=== PATIENT | female | born 1955 | race Hispanic/Latino ===

== ENCOUNTER 2017-09-14 13:48 | Outpatient (CLI) | payer BC | END 2017-09-14 13:49 | disposition home or self-care (01) | LOC: BICRAD 13:48 | PROVIDERS: ATTEND Family Medicine | DX: J18.9 Pneumonia, unspecified organism (principal) | CPT/HCPCS: 71046 ==

== ENCOUNTER 2018-02-18 09:07 | Outpatient (CLI) | payer BC ==
--- NOTE | 2018-02-18 13:03 | MRI ---
MRI LUMBAR SPINE WITHOUT CONTRAST: INDICATIONS: Chronic low back pain for years with right hip and right thigh pain. TECHNIQUE: Multiplanar, multisequence MR images were obtained of the lumbar spine without IV contrast. FINDINGS: No acute fracture is demonstrated. The conus is seen to terminate at approximately L1. Bone marrow signal intensity appears within normal limits. At L5-S1, there is moderate right and mild left facet joint degenerative change with a broad-based bu lge. The broad-based bulge and facet hypertrophy encroach upon the neural foramina without definite nerve root impingement. At L4-L5, there is moderate facet joint degenerative change with a broad-based disk bulge with neural foraminal encroachment without definite nerve root impingement. There is mild central canal narrowi ng. At L3-L4, there is a broad-based bulge with facet hypertrophy and ligamentum flavum hypertrophy induc ing mild central canal narrowing with mild neural foraminal encroachment, left greater than right. At L2-L3, there is a broad-based bulge with mild facet joint degenerative change, without appreciable central canal or neural foraminal narrowing. At L1-L2, there is no appreciable central canal or neural foraminal narrowing. At T12-L1, there is no appreciable central canal or neural foraminal narrowing. IMPRESSION: Multilevel spondylosis of the lumbar spine with central canal and neural foraminal narrowing, as justicev e. POS: [facility]
== END 2018-02-18 09:08 | disposition home or self-care (01) ==
LOC: MRI 09:07 → BICMRI 09:08
PROVIDERS: ATTEND Family Medicine
DX: M54.5 Low back pain (principal); M47.816 Spondylosis without myelopathy or radiculopathy, lumbar region; M48.061 Spinal stenosis, lumbar region without neurogenic claudication; M99.83 Other biomechanical lesions of lumbar region
CPT/HCPCS: 72148

== ENCOUNTER 2018-06-22 14:56 | Outpatient (CLI) | payer BC ==
[~2018-06-22 14:56] MED LIST: Gadobenate Dimeglumine 529 MG/1 ML (20ML VIAL) ONE
--- NOTE | 2018-06-22 17:30 | MRI ---
MRI BRAIN WITH AND WITHOUT IV CONTRAST: 06/22/2018 HISTORY: Headache post fall. Patient with history of concussion one year ago. Has now started having headach es for the last 3 to 4 months, which are getting worse. COMPARISON: None available. FINDINGS: There are scattered punctate areas of increased FLAIR and T2 weighted signal intensity within the per iventricular and subcortical white matter, as well as in the anand bilaterally, likely reflective of c hronic small vessel ischemic change. There is no evidence of an acute infarction. No abnormal areas of enhancement are seen after the administration of intravenous contrast. There is a small, dilated perivascular space in the right lentiform nucleus. The septum pellucidum and third ventricle are in the midline. The ventricular system is normal in si ze, shape, and position. Appropriate flow voids are demonstrated at the base of the brain. The distal left vertebral artery i s dominant. Minimal mucosal thickening is seen in a few right ethmoid air cells. The orbits and remainder of the skull base have a normal MRI appearance. IMPRESSION: No acute intracranial abnormalities demonstrated. POS: [facility]
== END 2018-06-22 14:57 | disposition home or self-care (01) ==
LOC: BICMRI 14:56
PROVIDERS: ATTEND Family Medicine
DX: R51 Headache (principal); W19.XXXA Unspecified fall, initial encounter
CPT/HCPCS: 70553; A9577

== ENCOUNTER 2018-11-01 12:40 | Outpatient (CLI) | payer BC ==
[2018-11-01 13:01] LABS: Estimated GFR-MDRD - POC Greater than 90
--- NOTE | 2018-11-01 13:55 | CT ---
ABDOMEN AND PELVIC CT SCAN WITH IV CONTRAST: HISTORY: Diarrhea and lower abdominal pain for 1 month. FINDINGS: The lung bases are clear of acute process. Liver, gallbladder, pancreas, spleen, and adrenal glands are unremarkable. Small nonobstructing left renal calculus. No evidence for acute obstruction. Normal-appearing appendix. There is abnormal colonic wall thickening involving most of the transvers e colon and the entire left colon with some pericolonic fat stranding concerning for nonspecific coli tis. There is trace free fluid in the pelvis. No evidence of bowel obstruction. IMPRESSION: Evidence for nonspecific colitis involving the transverse colon as well as the entire left colon. Tr aurelio free fluid in the pelvis. Tiny nonobstructing left renal calculus. Normal-appearing appendix. POS: [facility]
[2018-11-01] MEDS ORDERED: ISOVUE-370 76%-LOCM 1 ML ONE (13:56)
== END 2018-11-01 12:41 | disposition home or self-care (01) ==
LOC: BICCT 12:40
PROVIDERS: ATTEND Physician Assistant Medical
DX: R10.30 Lower abdominal pain, unspecified (principal); R19.7 Diarrhea, unspecified; N20.0 Calculus of kidney; K52.9 Noninfective gastroenteritis and colitis, unspecified
CPT/HCPCS: 74177; 82565; Q9966

== ENCOUNTER 2019-01-06 08:39 | Inpatient (IN) | payer BC ==
[2019-01-06] MEDS ORDERED: diphenhydrAMINE 50 MG/ML VIAL ONE (09:12)
[2019-01-06] MEDS ORDERED: Metoclopramide HCl 10 MG/2 ML VIAL ONE (09:12)
[2019-01-06 09:19] LABS: #Basophils 0.1 thou/uL (0.0-0.2); #Eosinphils 0.1 thou/uL (0.0-0.7); #Lymphocytes 5.2 thou/uL (1.20-3.40); #Monocytes 0.9 thou/uL (0.11-0.59); #Neutrophils 7.2 thou/uL (1.40-6.50); %Basophils 0.9 % (0.0-1.0); %Eosinophils 0.9 % (0.0-10.0); %Lymphocytes 38.3 % (21.0-51.0); %Monocytes 6.4 % (0.0-10.0); %Neutrophils 53.5 % (42.0-75.0); Hemoglobin 14.5 g/dL (12.0-16.0); Mean Corpuscular HGB CONC 33.8 g/dL (32.0-36.0); Mean Corpuscular Volume 88.8 fL (78.0-98.0); Mean Platelet Volume 8.3 fL (7.4-10.4); Platelet Count 327 thou/uL (130-400); RBC Distribution Width 13.2 % (11.5-14.5); Red Blood Cell (RBC) Count 4.83 mill/uL (4.20-5.40); White Blood Cell (WBC) Count 13.5 thou/uL (4.8-10.8)
--- NOTE | 2019-01-06 09:38 | CT ---
CT BRAIN WITHOUT CONTRAST: Date: 01/06/19 INDICATION: History of intermittent headache. COMPARISON: Prior MRI of the brain with and without contrast dated 06/22/18. FINDINGS: There is stable mild chronic small vessel white matter ischemic change. Remote lacunar infarct involv ing the right globus pallidus is stable appearing. Intracranial vascular calcifications are present. No acute infarct, hemorrhage, or hydrocephalus is present. Skull is intact. Mastoid air cells and par anasal sinuses are clear. IMPRESSION: 1. No definite acute intracranial abnormality. 2. Chronic ischemic change as above. POS: [facility]
[2019-01-06 09:42] LABS: ALT (SGPT) 13 U/L (8-55); AST (SGOT) 15 U/L (5-34); Albumin 4.5 g/dL (3.4-4.8); Alkaline Phosphatase 81 U/L (40-150); Anion Gap 15 mmol/L (10-20); BUN (Urea Nitrogen) 12 mg/dL (9.8-20.1); Bilirubin, Total 0.7 mg/dL (0.2-1.2); Calc. Creatinine Clearance 0 mL/min (70-130); Calcium 9.8 mg/dL (7.8-10.44); Carbon Dioxide 24 mmol/L (23-31); Chloride 99 mmol/L (98-107); Estimated GFR-MDRD 82; Globulin 3.7 g/dL (2.4-3.5); Glucose 86 mg/dL (80-115); Potassium 3.6 mmol/L (3.5-5.1); Protein, Total 8.2 g/dL (6.0-8.3); Sodium 134 mmol/L (136-145)
[2019-01-06] MEDS ORDERED: Aspirin 325 MG TAB ONE (11:00)
[2019-01-06] MEDS ORDERED: Acetaminophen 500 MG TAB ONE (11:12)
[2019-01-06] MEDS ORDERED: ISOVUE-370 76%-LOCM 1 ML ONE (12:02)
[2019-01-06] MEDS ORDERED: Gadobenate Dimeglumine 529 MG/1 ML (20ML VIAL) ONE (12:06)
[2019-01-06 13:55] VITALS: BMI 25.7
[2019-01-06] MEDS ORDERED: Ondansetron ODT 4 MG TAB PO PRN (15:22)
--- NOTE | 2019-01-06 15:48 | PDOC.FPRHP ---
- History of Present Illness Chief Complaint: GARDUNO, Elevated BP History of Present Illness: Pt is a 63 yo F with history of HTN, HLD, Seasonal allergies, and Depression who presents with Headache and elevated blood pressure. The patient states that her headache began last Wednesday. The headache is occipital and radiates to the left side of her head it is intermittent and worse in the mornings. She has been dealing with it by taking ASA, but she thought it might be sinus related, so she decided to go see Dr. Woody this morning. At her office visit, they checked her blood pressure and determined it was too high, so they told her to come to the ED. She endorses headache, chest pain, shortness of breath, abdominal pain, and blurry vision. She has not had any syncope, but she says she has felt like she was going to pass out at times, so she had to go lay down for the feeling to resolve. ED Course: In the ED, she had a CT Head, which showed: stable mild chronic small vessel white matter ischemic change. Remote lacunar infarct involving the right globus pallidus is stable appearing. Intracranial vascular calcifications, but no acute infarct, hemorrhage, or hydrocephalus is present. She was given ASA, Benadryl, Metoclopramide, 1L of NS and Tylenol in the ED. - Allergies/Adverse Reactions Allergies Allergy/AdvReac Type Severity Reaction Status Date / Time No Known Allergies Allergy Unverified 01/06/19 15:02 - Home Medications Medication Instructions Recorded Confirmed Type Aspirin 81 mg PO DAILY 01/06/19 01/06/19 History Atenolol [Tenormin] 1 tab PO DAILY 01/06/19 01/06/19 History Atorvastatin Calcium 1 tab PO HS 01/06/19 01/06/19 History Cetirizine HCl [Zyrtec] 10 mg PO DAILY 01/06/19 01/06/19 History Citalopram [CeleXA] 20 mg PO DAILY 01/06/19 01/06/19 History Lisinopril 40 mg PO DAILY 01/06/19 01/06/19 History Zolpidem Tartrate 1 tab PO HS 01/06/19 01/06/19 History - History PMHx: HTN, HLD, Seasonal allergies, and Depression PSHx: Tubal ligation, Hysterectomy, Cervical disc fusion FHx: Mom- from bone marrow cancer, Dad- Stroke Social: She smokes 1/2 PPD for 30 years. She drinks a 6-pack of beer/week. No recreational drugs. - Review of Systems General: denies: fever/chills, fatigue Eyes: reports: vision changes ENT: denies: nasal congestion, rhinorrhea Respiratory: reports: shortness of breath Cardiovascular: reports: chest pain. denies: edema Gastrointestinal: reports: nausea, abdominal pain. denies: vomiting, diarrhea Genitourinary: denies: dysuria Skin: denies: rashes Musculoskeletal: denies: pain, stiffness Neurological: reports: weakness. denies: numbness Psychological: reports: depression - Vital signs BP: 232/120 HR: 85 RR: 18 Tmax: 98.9 Pox: 98% on RA Wt: 66.22 kg - Physical Exam Constitutional: NAD, awake, alert and oriented, well developed HEENT: normocephalic and atraumatic, PERRLA, EOMI, no scleral icterus, normal nasal mucosa, MMM, oropharynx clear Neck: supple, FROM, trachea midline Chest: no-tender to palpation Heart: RRR, normal S1/S2, no murmurs/rubs/gallops Lungs: CTAB Abdomen: soft, non-tender, bowel sounds present Musculoskeletal: normal structure, normal tone, ROM grossly normal Neurological: no focal deficit, CN II-XII intact, normal sensation Skin: no rash/lesions Heme/Lymphatic: no unusual bruising or bleeding Psychiatric: normal mood and affect FMR H&P: Results - Labs Result Diagrams: 01/06/19 08:56 01/06/19 08:56 Lab results: WBC 13.5 thou/uL (4.8-10.8) H 01/06/19 08:56 Hgb 14.5 g/dL (12.0-16.0) 01/06/19 08:56 Hct 42.9 % (36.0-47.0) 01/06/19 08:56 MCV 88.8 fL (78.0-98.0) 01/06/19 08:56 Plt Count 327 thou/uL (130-400) 01/06/19 08:56 Neutrophils % 53.5 % (42.0-75.0) 01/06/19 08:56 Sodium 134 mmol/L (136-145) L 01/06/19 08:56 Potassium 3.6 mmol/L (3.5-5.1) 01/06/19 08:56 Chloride 99 mmol/L (98-107) 01/06/19 08:56 Carbon Dioxide 24 mmol/L (23-31) 01/06/19 08:56 BUN 12 mg/dL (9.8-20.1) 01/06/19 08:56 Creatinine 0.72 mg/dL (0.6-1.1) 01/06/19 08:56 Glucose 86 mg/dL (80-115) 01/06/19 08:56 Calcium 9.8 mg/dL (7.8-10.44) 01/06/19 08:56 Total Bilirubin 0.7 mg/dL (0.2-1.2) 01/06/19 08:56 AST 15 U/L (5-34) 01/06/19 08:56 ALT 13 U/L (8-55) 01/06/19 08:56 Alkaline Phosphatase 81 U/L (40-150) 01/06/19 08:56 Serum Total Protein 8.2 g/dL (6.0-8.3) 01/06/19 08:56 Albumin 4.5 g/dL (3.4-4.8) 01/06/19 08:56 - EKG Interpretation EKG: Sinus rhythm with ST depression in inferior leads. FMR H&P: A/P - Problem List (1) Headache Current Visit: Yes Status: Chronic Code(s): R51 - HEADACHE Qualifiers: Headache type: paroxysmal hemicrania Headache chronicity pattern: episodic headache Intractability: not intractable Qualified Code(s): G44.039 - Episodic paroxysmal hemicrania, not intractable (2) Hypertensive urgency Current Visit: Yes Status: Acute Code(s): I16.0 - HYPERTENSIVE URGENCY (3) Chest pain Current Visit: Yes Status: Acute Code(s): R07.9 - CHEST PAIN, UNSPECIFIED Qualifiers: Chest pain type: other chest pain Qualified Code(s): R07.89 - Other chest pain; R07.8 - Other chest pain (4) HLD (hyperlipidemia) Current Visit: Yes Status: Chronic Code(s): E78.5 - HYPERLIPIDEMIA, UNSPECIFIED Qualifiers: Hyperlipidemia type: unspecified Qualified Code(s): E78.5 - Hyperlipidemia , unspecified (5) HTN (hypertension) Current Visit: Yes Status: Chronic Code(s): I10 - ESSENTIAL (PRIMARY) HYPERTENSION Qualifiers: Hypertension type: unspecified Qualified Code(s): I10 - Essential (primary ) hypertension (6) Seasonal allergies Current Visit: Yes Status: Chronic Code(s): J30.2 - OTHER SEASONAL ALLERGIC RHINITIS (7) Depression Current Visit: Yes Status: Chronic Code(s): F32.9 - MAJOR DEPRESSIVE DISORDER, SINGLE EPISODE, UNSPECIFIED Qualifiers: Depression Type: unspecified Qualified Code(s): F32.9 - Major depressive disorder, single episode, unspecified (8) Tobacco abuse Current Visit: Yes Status: Chronic Code(s): Z72.0 - TOBACCO USE - Plan Pt is a 63 yo F with history of HTN, HLD, seasonal allergies, and depression who presents for headache and chest pain. 1. Headache Occipital GARDUNO that radiates to the left side * CT: shows NAF with chronic ischemic changes of the lacunar R globus pallidus * Neuro Exam negative for focal deficits * Allow for 24-48H permissive HTN * CTA Head & Neck * MRI Brain * Checking lipid panel, TSH, Mag, Phos * Restarting home statin and Aspirin 2. HTN Urgency BP: 232/120 at highest * Q4H Vitals * Will slowly reduce bp to prevent ischemia of organs * Restarted home Atenolol and MINA 3. Chest Pain Telemetry: Sinus Rhythm with ST depression in inferior leads * Ordered EKG * Will trend troponins * Q4H Vital Signs * Will keep on Telemetry * Currently not experiencing any Chest pain 4. HLD * Continue home Atorvastatin dose 5. Seasonal Allergies * Continue home Zyrtec 6. Depression * Continue home Citalopram 7. Tobacco Abuse * Nicotine patch * Smoking Cessation Counseling Condition: Stable Diet: HHLSo DVT PPX: Lovenox GI PPX: Pepcid Lines: Peripheral Activity: Ambulate with Assist PCP: Bong Code Status: DNR-DNI Dispo: Obs, will control blood pressures and rule out any ACS or Stroke. LOS < 2 days. FMR H&P: Upper Level - Plan Date/Time: 01/06/19 1543 I, Cody Chamorro MD, have evaluated this patient and agree with findings/plan as outlined by underwriting intern resident. Pertinent changes/additions are listed here. Funmilayo Alves is a 63 year old with a PMH of HTN, HLD, Depression who presented to the ED with headache and elevated blood pressure. States headaches have been occurring off and on over the last week. Headache located on the posterior aspect of head and radiates to the left side. Worse in the mornings. Taking aspirin for headache. BP was checked by PCP, Bong, and it was significantly elevated so they instructed her to go to the ED. She endorses some chest pain, dyspnea, abdominal and blurry vision associated with her headaches. In the ED, CT brain was done showing stable mild chronic small vessel white matter ischemic change and remove lacunar infarct involving the right globus pallidus that is stable, intracranial vascular calcifications but no infarct or hemorrhage. She was given ASA, benadryl, reglan, tylenol and 1 L NS in the ED. We are admitting patient to stroke/obs. Checking MRI brain, CTA head and neck. Continue aspirin and statin. Will r/o CVA. Trending trops due to chest pain. Will get better control of hypertension after allowing permissive htn for 24 hours. Please see underwriting intern note above for full H&P, which I have reviewed and agree with.
[2019-01-06 16:01] LABS: Magnesium 1.7 mg/dL (1.6-2.6); Phosphorus 2.9 mg/dL (2.3-4.7)
[2019-01-06 16:08] LABS: Troponin I 0.013 ng/mL (< 0.028)
[2019-01-06] MEDS ORDERED: Atenolol 50 MG TAB PO SCH (16:15)
[2019-01-06] MEDS ORDERED: Lisinopril 20 MG TAB PO SCH (16:15)
[2019-01-06 16:26] LABS: Cardiac Risk 2.9 (Less than 4.5)
--- NOTE | 2019-01-06 16:44 | CT ---
CTA HEAD: 01/06/19 Axial tomograms obtained through the head following angio protocol with multiplanar reconstructions a nd 3D postprocessing. INDICATIONS: Headache. FINDINGS: The intracranial internal carotid arteries are patent and symmetric. Mild atherosclerotic change seen at the cavernous portions of both ICAs; however, no stenosis. Middle cerebral arteries are patent an d symmetric. Anterior cerebral arteries are patent and symmetric. Basilar artery is patent. Posterio r cerebrals are patent and symmetric. No aneurysm identified. IMPRESSION: Unremarkable CT angiogram of cerebral circulation. CTA NECK: Axial tomograms obtained with multiplanar reconstructions and 3D postprocessing. INDICATIONS: Headache. FINDINGS: Mild atherosclerotic change at the arch. No stenosis at the origin of the arch vessels. Both common carotid arteries are patent and symmetric with no stenosis or atherosclerotic change. There is atherosclerotic changes with calcified plaque in both bulbs and proximal ICAs. However, no e vidence of internal carotid artery stenosis identified by NASCET criteria. Vertebral arteries are patent and symmetric. Soft tissues show effacement of the vallecula in the hypopharynx on the left with effacement of the l eft piriform sinuses. Mild mucosal prominence at this location. Recommend direct evaluation of this site to rule out mucosal lesion. Otherwise no evidence of mass or adenopathy. IMPRESSION: 1. Atherosclerotic calcifications in both bulbs and proximal ICAs without evidence of significan t stenosis. 2. Mild mucosal prominence in the hypopharynx at the vallecula on the left and effacement of the left piriform sinus. Recommend direct evaluation of this region of the hypopharynx. POS: [facility]
--- NOTE | 2019-01-06 17:11 | MRI ---
MRI OF BRAIN WITH AND WITHOUT CONTRAST: 01/06/19 INDICATIONS: Headache. FINDINGS: Ventricles have normal size and position. Moderately severe chronic ischemic white matter changes are seen in both cerebral hemispheres. No evidence for restricted diffusion. There is no evidence of acute infarct, mass, or edema. Prominen t ischemic changes are seen in the brain stem on FLAIR sequence. When compared to the recent MRI of 06/22/18, the ischemic white matter changes have progressed since th at time with increasing signal now seen in the periventricular white matter. No abnormal enhancement. Intracranial internal carotid arteries and cerebral arteries exhibit expecte d flow voids. No other interval change noted. IMPRESSION: Moderate to severe chronic ischemic white matter changes are seen in both cerebral hemispheres. These changes have progressed when compared to July 05. There is no evidence of acute infarct or other si gnificant interval change noted. POS: [facility]
[2019-01-06] MEDS: Nicotine 21 MG PATCH TD SCH (17:48)
[2019-01-06 18:19] LABS: Troponin I Less than 0.010 ng/mL (< 0.028)
[2019-01-06] MEDS ORDERED: hydrALAZINE 20 MG/ML VIAL SLOW IVP SCH ×2 (19:48→21:15)
[2019-01-06] MEDS ORDERED: Chlorthalidone 25 MG TAB PO SCH (20:00)
[2019-01-06] MEDS: Zolpidem Tartrate 5 MG TAB PO SCH (20:08)
[2019-01-06] MEDS: Atorvastatin Calcium 40 MG TAB PO SCH (20:08)
[2019-01-06] MEDS: Famotidine 20 MG TAB PO SCH (20:08)
--- NOTE | 2019-01-06 20:38 | PDOC.EVN ---
Event Note - Event Note Event Note: Page from RN saying pt BP 231/113. - Ordered hydralazine 10 mg IV to be given now. - Went to evaluate pt. Pt had been just been given hydralazine upon evaluation and reports headache was improving. Ordered chlorthalidone 12.5 mg to be given now as well. Scheduled chlorthalidone 25 mg daily for the AM along w/ atenolol and lisinopril. On exam, pt euvolemic. Lungs clear. No lower extremity or sacral edema. Radial pulse 2+. Pt's daughter July present and inquired if renal U/S might be indicated. Informed her if BP did not improve after addition of 3rd BP med tomorrow, then this is definitely something to consider. Malissa Isbell MD PGY1
[2019-01-06] MEDS ORDERED: Atorvastatin Calcium 40 MG TAB PO SCH (21:00)
[2019-01-06 22:58] LABS: Troponin I 0.012 ng/mL (< 0.028)
[2019-01-06] MEDS: Acetaminophen 325 MG TAB PO PRN (23:47)
[2019-01-07] MEDS ORDERED: diphenhydrAMINE 50 MG/ML VIAL IVP SCH (00:15)
[2019-01-07] MEDS ORDERED: Metoclopramide HCl 10 MG/2 ML VIAL IVP SCH (00:30)
[2019-01-07] MEDS ORDERED: Lactated Ringer's 500 ML IV SCH ×2 (00:30→00:45)
[2019-01-07 05:09] LABS: #Basophils 0.1 thou/uL (0.0-0.2); #Eosinphils 0.2 thou/uL (0.0-0.7); #Lymphocytes 4.3 thou/uL (1.20-3.40); #Monocytes 0.9 thou/uL (0.11-0.59); #Neutrophils 7.1 thou/uL (1.40-6.50); %Basophils 0.5 % (0.0-1.0); %Eosinophils 1.5 % (0.0-10.0); %Lymphocytes 34.3 % (21.0-51.0); %Monocytes 6.9 % (0.0-10.0); %Neutrophils 56.9 % (42.0-75.0); Hemoglobin 13.6 g/dL (12.0-16.0); Mean Corpuscular HGB CONC 33.8 g/dL (32.0-36.0); Mean Corpuscular Hemoglobin 29.8 pg (27.0-31.0); Mean Corpuscular Volume 88.2 fL (78.0-98.0); Mean Platelet Volume 7.9 fL (7.4-10.4); Platelet Count 286 thou/uL (130-400); Red Blood Cell (RBC) Count 4.56 mill/uL (4.20-5.40); White Blood Cell (WBC) Count 12.4 thou/uL (4.8-10.8)
[2019-01-07] MEDS ORDERED: hydrALAZINE 20 MG/ML VIAL SLOW IVP SCH ×2 (05:15→14:15)
[2019-01-07 05:28] LABS: Anion Gap 12 mmol/L (10-20); BUN (Urea Nitrogen) 11 mg/dL (9.8-20.1); Calc. Creatinine Clearance 92 mL/min (70-130); Calcium 9.4 mg/dL (7.8-10.44); Carbon Dioxide 24 mmol/L (23-31); Chloride 98 mmol/L (98-107); Estimated GFR-MDRD Greater than 90; Glucose 105 mg/dL (80-115); Potassium 3.3 mmol/L (3.5-5.1); Sodium 131 mmol/L (136-145)
[2019-01-07] MEDS: Ondansetron PF 4 MG/2 ML Vial IVP PRN ×2 (06:16→12:33)
--- NOTE | 2019-01-07 06:32 | PDOC.FM ---
- Subjective Subjective: Continued headache this morning with nausea. Just received nausea medications and waiting for them to kick in. Difficulty sleeping overnight. - Objective Vital Signs & Weight: Vital Signs (12 hours) Temp Pulse Resp BP BP Pulse Ox 01/07/19 05:20 64 01/07/19 04:00 97.4 F L 64 15 191/94 H 97 01/07/19 00:00 98.3 F 74 H 147/78 H 14 L 01/06/19 21:46 66 231/118 H 01/06/19 20:07 66 231/118 H 01/06/19 20:00 98.3 F 68 15 231/113 H 97 Weight Weight 65.969 kg I&O: 01/05/19 01/06/19 01/07/19 06:59 06:59 06:59 Intake Total 1200 Balance 1200 Result Diagrams: 01/07/19 04:59 01/07/19 04:59 Phys Exam - Physical Examination Constitutional: NAD HEENT: PERRLA Neck: no JVD Respiratory: clear to auscultation bilateral Cardiovascular: RRR, no significant murmur Gastrointestinal: soft, non-tender Musculoskeletal: no edema, pulses present Neurological: non-focal, moves all 4 limbs Psychiatric: normal affect, A&O x 3 Dx/Plan (1) Chest pain Code(s): R07.9 - CHEST PAIN, UNSPECIFIED Status: Acute Qualifiers: Chest pain type: other chest pain Qualified Code(s): R07.89 - Other chest pain; R07.8 - Other chest pain (2) Hypertensive urgency Code(s): I16.0 - HYPERTENSIVE URGENCY Status: Acute (3) Depression Code(s): F32.9 - MAJOR DEPRESSIVE DISORDER, SINGLE EPISODE, UNSPECIFIED Status : Chronic Qualifiers: Depression Type: unspecified Qualified Code(s): F32.9 - Major depressive disorder, single episode, unspecified (4) HLD (hyperlipidemia) Code(s): E78.5 - HYPERLIPIDEMIA, UNSPECIFIED Status: Chronic Qualifiers: Hyperlipidemia type: unspecified Qualified Code(s): E78.5 - Hyperlipidemia , unspecified (5) Headache Code(s): R51 - HEADACHE Status: Chronic Qualifiers: Headache type: paroxysmal hemicrania Headache chronicity pattern: episodic headache Intractability: not intractable Qualified Code(s): G44.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 HTN Urgency BP: 232/120 at highest * Q4H Vitals * Will slowly reduce bp to prevent ischemia of organs * Restarted home Atenolol and MINA * increased atenolol to 100 and added chlorithalidone 25 * PRN Hydralazine 10mg needed x2 overnight * Will cont to monitor and titrate rx as needed for BP control * If recent change in rx does not improve BP will need to further assessment of secondary causes of acute BP elevation - consider renal US, metanephrines, earnest/aldost 2. Headache Occipital GARDUNO that radiates to the left side * CT: shows NAF with chronic ischemic changes of the lacunar R globus pallidus * Neuro Exam negative for focal deficits * CTA Head & Neck - mild atherosclerosis of bilateral bulbs w/o stenosis * MRI Brain - progression of mod-severe chronic ischemic white matter changes from 07/05, no acute infarct * Lipid panel, TSH, Mag, Phos w/o significant abnormalities * Restarting home statin and Aspirin 3. Chest Pain Telemetry: Sinus Rhythm with ST depression in inferior leads * Trop neg x3 * Q4H Vital Signs * Will keep on Telemetry * Currently not experiencing any Chest pain 4. HLD * Continue home Atorvastatin dose 5. Seasonal Allergies * Continue home Zyrtec 6. Depression * Continue home Citalopram 7. Tobacco Abuse * Nicotine patch * Smoking Cessation Counseling Condition: Stable Diet: HHLSo DVT PPX: Lovenox GI PPX: Pepcid Lines: Peripheral Activity: Ambulate with Assist PCP: Bong Code Status: DNR-DNI Dispo: Obs, will control blood pressures and rule out any ACS or Stroke. LOS < 2 days. Addendum - Attending - Attending Attestation Date/Time: 01/07/19 5410 I personally evaluated the patient and discussed the management with Dr. Anaya at [id number]. I agree with the History, Examination, Assessment and Plan documented above with any addition or exceptions noted below. Hypertensive emergency with headache- no sign of CVA on MRI, so will increase home medication dosages and continue prn. Goal to get bp <160/95 today. Per daughter her baseline is 145/80s. Headache- presumed secondary to htn- will follow headache protocol n/v- normal MRI yesterday so doubt increased intracranial pressure- diff is vomiting associated with migraine, gastroenterits. Zofran prn. Change to admit status. Patient states she's had diarrhea for several weeks- will check cdiff.
[2019-01-07] MEDS ORDERED: Potassium Chloride 20 MEQ TAB PO SCH (08:30)
[2019-01-07] MEDS ORDERED: Chlorthalidone 25 MG TAB PO SCH (09:00)
[2019-01-07] MEDS ORDERED: Atenolol 50 MG TAB PO SCH (09:00)
[2019-01-07] MEDS: Atenolol 50 MG TAB PO SCH (09:07)
[2019-01-07] MEDS: Famotidine 20 MG TAB PO SCH (09:08)
[2019-01-07] MEDS: Lisinopril 20 MG TAB PO SCH (09:08)
[2019-01-07] MEDS: Citalopram 20 MG TAB PO SCH ×2 (09:09→12:30)
[2019-01-07] MEDS: Loratadine 10 MG TAB PO SCH ×2 (09:09→12:30)
[2019-01-07] MEDS: Aspirin Chewable 81 MG TAB PO SCH (09:09)
[2019-01-07] MEDS: Acetaminophen 325 MG TAB PO PRN ×2 (09:11→12:27)
[2019-01-07] MEDS: Enoxaparin Sodium 40 MG/0.4 ML SYRINGE SC SCH (09:12)
--- NOTE | 2019-01-07 11:22 | PDOC.EVN ---
Event Note - Event Note Event Note: Pt refusing chlorthalidone stating she thinks she has taken it before and it did not work well. Cancelled Rx for it and changed to amlodipine
[2019-01-07] MEDS ORDERED: Amlodipine 5 MG TAB PO SCH ×2 (11:30→14:15)
[2019-01-07] MEDS ORDERED: hydrALAZINE 20 MG/ML VIAL SLOW IVP PRN (16:28)
[2019-01-07] MEDS: Nicotine 21 MG PATCH TD SCH (17:18)
--- NOTE | 2019-01-08 06:11 | PDOC.FM ---
- Subjective Subjective: Pt without headache today. States mild dull headache at one point in the night but feeling well now. Pt is eager for DC today. - Objective Vital Signs & Weight: Vital Signs (12 hours) Temp Pulse Resp BP Pulse Ox 01/08/19 04:22 97.8 F 76 18 174/97 H 97 01/08/19 00:00 98.3 F 78 18 176/89 H 96 01/07/19 20:00 98.2 F 77 20 189/89 H 97 Weight Weight 65.969 kg I&O: 01/06/19 01/07/19 01/08/19 06:59 06:59 06:59 Intake Total 1200 240 Balance 1200 240 Result Diagrams: 01/07/19 04:59 01/08/19 06:28 Phys Exam - Physical Examination Constitutional: NAD HEENT: moist MMs Neck: full ROM Respiratory: no wheezing, no rales, no rhonchi, clear to auscultation bilateral Cardiovascular: RRR, no significant murmur Gastrointestinal: soft, non-tender Musculoskeletal: no edema, pulses present Neurological: non-focal, moves all 4 limbs Psychiatric: normal affect, A&O x 3 Skin: no rash Dx/Plan (1) Chest pain Code(s): R07.9 - CHEST PAIN, UNSPECIFIED Status: Acute Qualifiers: Chest pain type: other chest pain Qualified Code(s): R07.89 - Other chest pain; R07.8 - Other chest pain (2) Hypertensive urgency Code(s): I16.0 - HYPERTENSIVE URGENCY Status: Acute (3) Depression Code(s): F32.9 - MAJOR DEPRESSIVE DISORDER, SINGLE EPISODE, UNSPECIFIED Status : Chronic Qualifiers: Depression Type: unspecified Qualified Code(s): F32.9 - Major depressive disorder, single episode, unspecified (4) HLD (hyperlipidemia) Code(s): E78.5 - HYPERLIPIDEMIA, UNSPECIFIED Status: Chronic Qualifiers: Hyperlipidemia type: unspecified Qualified Code(s): E78.5 - Hyperlipidemia , unspecified (5) Headache Code(s): R51 - HEADACHE Status: Chronic Qualifiers: Headache type: paroxysmal hemicrania Headache chronicity pattern: episodic headache Intractability: not intractable Qualified Code(s): G44.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 HTN Urgency BP: 232/120 at highest * Q4H Vitals * Will slowly reduce bp to prevent ischemia of organs * Restarted home Atenolol and MINA * increased atenolol to 100, changed chlorithalidone to amlodipine because pt states she took chlorithalidone in past w/o benefit * BP's currently 170s/90s which is improved * Will cont to monitor and titrate rx as needed for BP control * If recent change in rx does not improve BP will need to further outpt workup of secondary causes of acute BP elevation - consider renal US, metanephrines, earnest/aldost * If BP continues to downtrend and pt remains asymptomatic will likely dc later today 2. Headache Occipital GARDUNO that radiates to the left side * CT: shows NAF with chronic ischemic changes of the lacunar R globus pallidus * Neuro Exam negative for focal deficits * CTA Head & Neck - mild atherosclerosis of bilateral bulbs w/o stenosis * MRI Brain - progression of mod-severe chronic ischemic white matter changes from 07/05, no acute infarct * Lipid panel, TSH, Mag, Phos w/o significant abnormalities * Restarting home statin and Aspirin 3. Chest Pain Telemetry: Sinus Rhythm with ST depression in inferior leads * Trop neg x3 * Q4H Vital Signs * Will keep on Telemetry * Currently not experiencing any Chest pain 4. HLD * Continue home Atorvastatin dose 5. Seasonal Allergies * Continue home Zyrtec 6. Depression * Continue home Citalopram 7. Tobacco Abuse * Nicotine patch * Smoking Cessation Counseling Condition: Stable Diet: HHLSo DVT PPX: Lovenox GI PPX: Pepcid Lines: Peripheral Activity: Ambulate with Assist PCP: Bong Code Status: DNR-DNI Dispo: In pt, if BP maintains controlled will DC later today. Addendum - Attending - Attending Attestation Date/Time: 01/08/19 [id number] I personally evaluated the patient and discussed the management with Dr. Anaya at 0655 am. I agree with the History, Examination, Assessment and Plan documented above with any addition or exceptions noted below. HTN emergency- resolved. Continue increased medication doses GARDUNO- probably secondary to above. Improved today. Patient wants to go home. Will watch bp this morning and possible d/c home this pm.
[2019-01-08 06:54] LABS: Anion Gap 14 mmol/L (10-20); BUN (Urea Nitrogen) 18 mg/dL (9.8-20.1); Calc. Creatinine Clearance 82 mL/min (70-130); Calcium 10.3 mg/dL (7.8-10.44); Carbon Dioxide 27 mmol/L (23-31); Chloride 90 mmol/L (98-107); Estimated GFR-MDRD 80; Glucose 101 mg/dL (80-115); Potassium 3.9 mmol/L (3.5-5.1); Sodium 127 mmol/L (136-145)
[2019-01-08] MEDS: Famotidine 20 MG TAB PO SCH ×2 (07:47→10:03)
[2019-01-08] MEDS: Atorvastatin Calcium 40 MG TAB PO SCH (07:47)
[2019-01-08] MEDS: Zolpidem Tartrate 5 MG TAB PO SCH (07:47)
[2019-01-08] MEDS ORDERED: Amlodipine 5 MG TAB PO SCH (09:00)
[2019-01-08] MEDS: Aspirin Chewable 81 MG TAB PO SCH (10:03)
[2019-01-08] MEDS: Atenolol 50 MG TAB PO SCH (10:04)
[2019-01-08] MEDS: Lisinopril 20 MG TAB PO SCH (10:04)
[2019-01-08] MEDS: Loratadine 10 MG TAB PO SCH (10:05)
[2019-01-08] MEDS: Citalopram 20 MG TAB PO SCH (10:05)
[2019-01-08] MEDS: Enoxaparin Sodium 40 MG/0.4 ML SYRINGE SC SCH (10:06)
[2019-01-08 11:38] VITALS: BP 164/92; TEMP 98.6
[2019-01-08] MEDS: Nicotine 21 MG PATCH TD SCH (15:40)
--- NOTE | 2019-01-09 13:59 | DIS ---
DATE OF ADMISSION: 01/06/2019 DATE OF DISCHARGE: 01/08/2019 PRIMARY CARE PHYSICIAN: Dr. Woody. RESIDENT: Jack Anaya DO ADMITTING: Dr. Maycol Linn DISCHARGE ATTENDING: Dr. Silva Cee PROCEDURES: None. CONSULTS: None. PRIMARY DIAGNOSES: 1. Hypertensive urgency. 2. Chest pain. 3. Headache. SECONDARY DIAGNOSES: 1. Hyperlipidemia. 2. Hypertension. DISCHARGE MEDICATIONS: 1. Cetirizine 10 mg daily. 2. Celexa 20 mg daily. 3. Aspirin 81 mg daily. 4. Zolpidem 5 mg at bedtime. 5. Lisinopril 40 mg daily. 6. Atorvastatin 40 mg daily. 7. Budesonide 3 mg daily. 8. Norvasc 5 mg daily. 9. Atenolol 100 mg daily. DISCONTINUED MEDICATIONS: Atenolol 50 mg daily. HISTORY OF PRESENT ILLNESS AND HOSPITAL COURSE: The patient is a 63-year-old female, presenting to the ED with a headache and elevated blood pressure. The patient states that her headache began last Wednesday. Her pain is occipital and radiates to the left side of her head and is described as intermittent and worse in the mornings. The patient has been dealing with her pain by taking aspirin. She was seen by her PCP, Dr. Woody the morning prior to her arrival, they checked her blood pressure and determined that to be severely elevated with systolic blood pressure greater than 200 and sent her to the ED. Upon arrival, she endorsed continued headache with also experiencing chest pain, shortness of breath, abdominal pain, and blurry vision. She denied any syncope, but states she felt like she was going to pass out at times. Head CT in the ED showed stable mild chronic small vessel white matter ischemic change with remote lacunar infarct involving the right globus pallidus, all stable appearing. Intracranial vascular calcifications were noted, but no acute infarct. The patient was subsequently admitted for hypertensive urgency with need for blood pressure control. The patient's home medications were resumed and titrated appropriately. Her atenolol was increased from 50 mg to 100 mg on her second day of admission. This brought her blood pressure down from systolic of 200s to near 170s. The patient was then started on Norvasc 5 mg with subsequent further improvement in her blood pressure control. At the time of discharge, the patient had blood pressure readings consistently around 160 systolic over 90 diastolic. She was asymptomatic and no longer experiencing any headaches. She was instructed about the importance of following up with her primary care provider for further blood pressure medication titration. She was informed that if her blood pressure was not otherwise controlled with these medications and further titration, she would need a workup for secondary causes of hypertension, she and her daughter expressed understanding to this. DISPOSITION: Stable. DISCHARGE INSTRUCTIONS: 1. Location: Home. 2. Activity: As tolerated. No restrictions. 3. Diet: Heart healthy. 4. Followup: PCP, Dr. Woody within 3 to 7 days. Job ID: [id number] MTDD
--- NOTE | 2019-01-11 03:55 | PQF ---
[employer] Win[employer] Viewer KANNAN VALENZUELA MD [id number] CLINICAL DOCUMENTATION CLARIFICATION FORM: POST DISCHARGE Addendum to original discharge summary date: ____ Late entry note date: __ DATE: 01/11/19 ATTN: Kannan Brambila Please exercise your independent, professional judgment in responding to the clarification form. Clinical indicators are provided on the bottom of this form for your review Can you please further specify the diagnosis based on the clinical indicators below? Please check appropriate box(s): [ X ] Hyponatremia [ ] Abnormal Laboratory findings [ ] Other diagnosis please specify [ ] Unable to determine In addition, please specify: Present on Admission (POA): [X ] Yes [ ] No [ ] Unable to determine For continuity of documentation, please document condition throughout progress notes and discharge summary. Thank You. CLINICAL INDICATORS Laboratory- "Sodium 131L, 127L, 134L" 01/06/2019 page 4- "Headache" Family Med P.N 01/06/2019 page Page 1- "nausea" RISK FACTORS Hypertensive Urgency- H and P pg.4 History of hypertension, Female at the age of 63- 01/06/2019 page 1 TREATMENT Lactated Ringer's 500ml IV 999mls/hr-MAR 01/07/2019 given NACl in-[facility] 01/06/2019 page 1 (This form is maintained as a part of the permanent medical record) 2014 [email or web address] All Rights Reserved [email or web address] [not provided] MTDD
== END 2019-01-08 15:52 | disposition home or self-care (01) | DRG 305 ==
LOC: ERS 08:39 → 2SE 10:25 → OBSVTOIN 10:25 → ERS 12:45
PROVIDERS: ADMIT Emergency Medicine; ATTEND Emergency Medicine
DX: I16.0 Hypertensive urgency (principal); E87.1 Hypo-osmolality and hyponatremia; Z66 Do not resuscitate; I10 Essential (primary) hypertension; G44.039 Episodic paroxysmal hemicrania, not intractable; E78.5 Hyperlipidemia, unspecified; J30.2 Other seasonal allergic rhinitis; F32.9 Major depressive disorder, single episode, unspecified; F17.210 Nicotine dependence, cigarettes, uncomplicated; R07.89 Other chest pain; Z79.82 Long term (current) use of aspirin; Z79.899 Other long term (current) drug therapy; Z98.51 Tubal ligation status; Z90.710 Acquired absence of both cervix and uterus; Z98.1 Arthrodesis status
CPT/HCPCS: 36415; 70450; 70496; 70498; 70553; 80048; 80053; 80061; 83735; 84100; 84443; 84484; 85025; 90471; 90732; 93005; 93010; 96365; 96375; A9577; G0009; J0360; J1200; J1650; J2405; J2765; Q0162; Q9966

== ENCOUNTER 2022-10-06 10:50 | Outpatient (CLI) | payer MEDICARE, MEDICAID | END 2022-10-06 10:51 | disposition home or self-care (01) | LOC: BICMAMMO 10:50 | PROVIDERS: ATTEND Family Medicine | DX: Z12.31 Encounter for screening mammogram for malignant neoplasm of breast (principal) | CPT/HCPCS: 77063; 77067 ==